=== PATIENT | female | born 1975 | race Caucasian/White ===

== ENCOUNTER → 2021-03-26 | Outpatient (CLI) | payer OTHER ==
[2021-03-26 07:28] LABS: MEAN CORP HGB 27.2 pg (26-34); RED CELL DISTRIBUTION WIDTH 15.5 % (11.5-14.5)
[2021-03-26 08:24] LABS: CALCIUM 8.4 mg/dL (8.4-10.5); CARBON DIOXIDE 24.3 mmol/L (20.0-32)
== END | disposition home or self-care (01) ==
LOC: LAB 07:04
PROVIDERS: ATTEND Nurse Practitioner Family
DX: Z00.00 Encounter for general adult medical examination without abnormal findings (principal); R53.83 Other fatigue; R10.84 Generalized abdominal pain; Z83.3 Family history of diabetes mellitus
CPT/HCPCS: 36415; 80053; 80061; 83036; 84436; 84439; 84443; 84481; 85027; 86677

== ENCOUNTER → 2021-08-16 | Outpatient (CLI) | payer OTHER ==
--- NOTE | 2021-08-16 11:52 | DIREP ---
PROCEDURE:US SOFT TISSUE ABDOMINAL WALL COMPARISON:None. INDICATIONS:ABD PAIN generalized, palp, hernia TECHNIQUE:Sonography of the supraumbilical abdominal wall was performed using grayscale and color Doppler imaging. FINDINGS: Supraumbilical midline abdominal wall defect with herniated fat content. The defect measures 10 mm in diameter. The hernia sac measures 2.8 x 2.3 x 3.2 cm. Hernia sac enlargement is seen on Valsalva maneuvers. CONCLUSION: Small supraumbilical midline abdominal wall defect measuring 10 mm. Herniated omental fat content is seen within the hernia sac, which measures 2.8 x 2.3 x 3.2 cm. Dictated by: Jignesh Ortega MD on 08/16/2021 at 11:49 AM
== END | disposition home or self-care (01) ==
LOC: RAD 08-08 07:42
PROVIDERS: ATTEND Nurse Practitioner Family
DX: R10.84 Generalized abdominal pain (principal)
CPT/HCPCS: 76705